=== PATIENT | female | born 2005 | race Caucasian/White ===

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

== ENCOUNTER 2023-06-26 09:29 | Outpatient (AMB) | payer BC, SELFPAY ==
--- NOTE | 2023-06-26 10:05 | A.OFFPC_ITS ---
Vital Signs 06/26/23 10:06 Height 5 ft 7 in Weight 212 lb BMI 33.2 BP 108/74 Blood Pressure Location Rt brachial Position Sitting Pulse 79 Pulse Source Pulse Oximeter Pulse Oximetry (%) 100 Oxygen Delivery Method Room Air Intake Visit Reasons: EST. Care/Transfer Dr. Rivas Intake Note: Pt is here today to [facility] from [facility]: Physical Exam Is last menstrual period known: Yes Last menstrual period: 06/04/23 Allergies No Known Allergies Allergy (Verified 06/26/23 10:14) Medication List - Last Reconciled 06/26/23 by Vaishali Santamaria MD tretinoin 0.05% (Retin-A) 1 appl topical BEDTIME Tobacco use date assessed: 06/26/23 Dental Screening Dental Screen Date: 06/26/23 Did you have a dental visit in the last 12 months?: Yes Did you have a dental problem in the last 6 months where you did not have access to dental care?: Yes Was dental information given to patient?: Patient has dentist HPI EST. Care/Transfer Dr. Rivas HPI Details 18-year-old lady, new to practice, here transferred from [facility], here today to establish care with new provider and for physical exam. She has acne vulgaris currently on tretinoin. 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 She has not yet had her initial pelvic exam or cervical cancer screening. Up-to-date with all her vaccinations. [facility] Medical History (Updated 06/26/23 @ 10:19 by Vaishali Santamaria MD) Acne vulgaris Surgical History (Updated 06/26/23 @ 10:19 by Vaishali Santamaria MD) No pertinent past surgical history Family History Mother No problems noted. Paternal Grandfather Diabetes mellitus Maternal Grandmother Breast cancer Paternal Grandmother No problems noted. 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 1. Little interest or pleasure in doing things: not at all 2. Feeling down, depressed, or hopeless: not at all 3. Trouble falling or staying asleep, or sleeping too much: not at all 4. Feeling tired or having little energy: not at all 5. Poor appetite or overeating: not at all 6. Feeling bad about yourself - or that you are a failure or have let yourself or your family down: not at all 7. Trouble concentrating on things, such as reading the newspaper or watching television: not at all 8. Moving or speaking so slowly that other people could have noticed. Or the opposite - being so fidgety or restless that you have been moving around a lot more than usual: not at all 9. Thoughts that you would be better off or of hurting yourself in some way: not at all Total score: 0 Depression Screening Interpretation: Negative 27308 - PHQ-9 Billing: Yes Source: Developed by Drs. Dain Howell, Dary Abarca, Baldomero Torres and colleagues, with an educational vian from [employer]. Thrive Questionnaire Date Thrive assessed: 10/21/21 I am a: Patient What is your living situation today?: I have a steady place to live Within the past 12 months, did the food you bought not last and you didn't have the money to get more?: Never true Within the past 12 months, did you worry whether your food would run out before you got money to buy more?: Never true Do you have trouble paying for medicines?: No Do you have trouble getting transportation to medical appointments?: No Do you have trouble paying your heating and electricity bill?: No Do you have trouble taking care of your child, family member or friend?: No Do you have trouble with day-to-day activities such as bathing, preparing meals, shopping, managing finances, etc.?: No Are you currently unemployed and looking for a job?: No Are you interested in more education?: No AUDIT C Alcohol Use Questionnaire (AUDIT-C) 1. How often do you have a drink containing alcohol?: Monthly or less 2. How many drinks containing alcohol do you have on a typical day when you are drinking?: 1 or 2 3. How often do you have six or more drinks on one occasion?: Never Total Score: 1 MIKALA-7 AMB Questionnaire MIKALA-7 Date MIKALA - 7 assessed: 06/26/23 Feeling nervous, anxious, or on edge: 0 = Not at all Not being able to stop or control worryin = Not at all Worrying too much about different things: 0 = Not at all Trouble relaxin = Not at all Being so restless that it is hard to sit still: 0 = Not at all Becoming easily annoyed or irritable: 0 = Not at all Feeling afraid as if something awful might happen: 0 = Not at all Total MIKALA-7 score (0-4 normal; 5-9 mild; 10-14 moderate; 15-21 severe): 0 Source: Developed by Drs. Dain Howell, Dary Abarca, Baldomero Torres and colleagues, with an educational ivan from [employer]. MIKALA-7 Assessment Billing MIKALA-7 Assessment Tool: MIKALA-7 Assessment 14062 Review of Systems Const Denies body aches, Denies fatigue, Denies fever(s), Denies headache(s) and Denies weakness Eyes Denies change in vision ENT Denies dizziness, Denies headache(s) and Denies nasal congestion Card Denies chest pain, Denies lightheadedness, Denies palpitations and Denies dyspnea Resp Denies chest congestion, Denies cough, Denies dyspnea and Denies wheezing GI Denies abdominal pain, Denies change in bowel habits and Denies heartburn Denies hematuria, Denies urinary frequency, Denies dysuria and Denies urinary urgency Musc Denies myalgias and Denies arthralgias Skin/Breast Denies breast pain, Denies breast mass and Denies rash Neuro Denies dizziness, Denies headache(s) and Denies weakness Psych Reports no additional complaints Endo Denies fatigue, Denies polydipsia, Denies polyuria and Denies palpitations Obed/Lymph Denies easy bruising Aller/Immun Denies seasonal rhinorrhea and Denies wheezing Physical exam (Primary Care) Vital Signs: Last Vital Signs Pulse 79 06/26/23 10:06 BP 108/74 06/26/23 10:06 Pulse Ox 100 06/26/23 10:06 Oxygen Delivery Method Room Air 06/26/23 10:06 BMI result Body Mass Index 33.2 BMI Assessment/Plan discussion: High BMI High, discussed plan: weight reduction, dietary and physical activity Tobacco/Smoking Status: Tobacco use Status Tobacco use date assessed 06/26/23 06/26/23 10:12 Patient Tobacco Use Status Never used Tobacco 06/26/23 10:12 e-Cigarette/Vaping Use Never Used 06/26/23 10:12 PHQ-9: PHQ-9 Score PHQ-9: Total score 0 06/26/23 10:43 Depression Screening Interpretation: Negative Thrive Assessment: Date of Thrive Assessment Date Thrive assessed 10/21/21 06/26/23 10:12 Const General: comfortable, no acute distress, alert and Physically active Nutritional Appearance: obese Orientation/consciousness: patient oriented x3 Limitations: no limitations HENMT Head: Yes normocephalic and Yes atraumatic Ears: hearing grossly normal bilaterally, external ears normal, TM's normal bilaterally and EAC's normal General nose exam: Normal external nose present Face and sinus: Yes normal facial exam and Yes face symmetric Mouth: Normal oral and palatal mucosa present, tongue normal, oropharynx normal and moist mucous membranes Teeth and gingiva: dentition normal and gingiva normal Throat: Yes posterior oropharynx normal Eyes General: appearance normal, both eyes and all related structures Alignment and Position: alignment normal Periorbital: periorbital findings normal Eyelids: Yes eyelids normal Conjunctivae: conjunctivae normal Sclerae: sclerae normal Pupils: Equal, round and reactive pupils present EOM: EOMs intact bilaterally Neck Neck: Yes full ROM, Yes no lymphadenopathy and Yes supple Thyroid: Thyroid normal Chest Chest palpation & inspection: normal palpation of entire chest wall Breast/axilla inspection: normal inspection of the breasts and normal inspection of the axillae Breast/axilla palpation: normal palpation of the breasts Resp Effort & Inspection: normal respiratory effort and able to speak in complete sentences Auscultation: clear to auscultation bilaterally Cardio Palpation: normal PMI Rate: regular rate Rhythm: regular rhythm Heart sounds: S1 normal heart sound present and S2 normal heart sound present Peripheral pulses: Peripheral pulses 2+ throughout GI Inspection: Yes normal to inspection Palpation (GI): Soft to palpation, nontender, no guarding and no masses Auscultation: normal bowel sounds General: Yes no CVA tenderness and Yes deferred (Referred to Ob) Back/Spine/Pelvis Back: no CVA tenderness and No back tenderness Skin General skin exam: no rashes or lesions noted Neuro General: patient oriented x3 Cranial nerves: Yes Equal, round and reactive pupils present Extrem General: Yes normal to inspection, Yes full ROM, Yes no joint enlargement, Yes no clubbing, cyanosis or edema and Yes normal gait Psych Appearance: grossly normal and well kempt Mental Status: mental status grossly normal Speech and movement: Normal speech and movement present Affect: normal affect Attitude: cooperative Thought process: Normal thought process present Assessment and Plan Assessment & Plan (1) Adult general medical exam: Code(s): Z00.00 - Encounter for general adult medical examination without abnormal fi ndings Plan: Will check appropriate labs. Continue with regular dental visit every 6 months and regular eye exams, at least every 2 years, sees Dr. Griffith. Take adequate calcium in diet and vitamin-D 3 at 2000 IU per cap once a day, in addition to weight-bearing exercises to help maintain good muscle tone and weight control. Instructed to do self-breast exam, and recommended to get yearly mammogram, starting at age 40. Patient up-to-date with all her vaccinations, reminded to get her flu shot this year and the new COVID vaccine booster that is coming out (2) Acne vulgaris: Code(s): L70.0 - Acne vulgaris Plan: Currently using tretinoin as needed and CeraVe facial wash (3) Cervical cancer screening: Code(s): Z12.4 - Encounter for screening for malignant neoplasm of cervix Plan: Referral to [facility] Christopher Dang, patient wants to see Nadia Tatum for her initial cervical cancer screen/pelvic exam Orders: Orders Alanine Aminotransferase 06/26/23 L70.0 - Acne vulgaris, Z. - Encounter for general adult medical examination without abnormal findings Aspartate Amino Transferase 06/26/23 L70.0 - Acne vulgaris, Z00. - Encounter for general adult medical examination without abnormal findings Glucose Fasting 06/26/23 L70.0 - Acne vulgaris, Z00. - Encounter for general adult medical examination without abnormal findings Lipid Panel 06/26/23 L70.0 - Acne vulgaris, Z00.00 - Encounter for general adult medical examination without abnormal findings Vitamin D 25-OH Total 06/26/23 L70.0 - Acne vulgaris, Z00.00 - Encounter for general adult medical examination without abnormal findings Hemoglobin and Hematocrit 06/26/23 L70.0 - Acne vulgaris, Z00.00 - Encounter for general adult medical examination without abnormal findings Referrals [employer]ER Referral Z12.4 - Encounter for screening for malignant neoplasm of cervix Coding Level of Care Code New Pt Prev Care [id number]([id number] Diagnoses Adult general medical exam Z00.00 Acne vulgaris L70.0 Cervical cancer screening Z12.4 Additional Codes MIKALA-7 Assessment Billing - MIKALA-7 Assessment Tool: MIKALA-7 Assessment 46721 ( [id number])
[2023-06-26 10:06] VITALS: BP 108/74; PULSE 79; O2SAT 100; BMI 33.2
== END 2023-06-26 10:41 | disposition home or self-care (01) ==
PROVIDERS: Visit Provider Internal Medicine
DX: Z00.00 Encounter for general adult medical examination without abnormal findings (principal); L70.0 Acne vulgaris; Z12.4 Encounter for screening for malignant neoplasm of cervix
CPT/HCPCS: 99385

== ENCOUNTER 2023-06-26 10:43 | Outpatient (REF) | payer BC, SELFPAY ==
[2023-06-26 13:13] LABS: Hematocrit 41.1 % (37.0-47.0); Hemoglobin 13.5 g/dl (12.0-16.0)
[2023-06-26 13:34] LABS: Alanine Aminotransferase 25 U/L (0-31); Aspartate Amino Transferase 20 U/L (5-31); Cholesterol 194 mg/dL (<200); Glucose Fasting 75 mg/dL (60-99); HDL Cholesterol 70 mg/dL (>40); LDL Cholesterol Calculated 108 mg/dL (<100); Triglycerides 82 mg/dL (<150)
== END 2023-06-26 10:44 | disposition home or self-care (01) ==
LOC: HO.HMGCLDS 10:43
PROVIDERS: PCP Internal Medicine; Visit Provider Internal Medicine
DX: Z00.00 Encounter for general adult medical examination without abnormal findings (principal); L70.0 Acne vulgaris
CPT/HCPCS: 36415; 80061; 82306; 82947; 84450; 84460; 85014; 85018

== ENCOUNTER 2024-08-12 10:49 | Outpatient (AMB) | payer BC, SELFPAY ==
--- NOTE | 2024-08-12 11:22 | MHC.PC.OV ---
Vital Signs 08/12/24 11:32 Height 5 ft 7 in Weight 223 lb BMI 34.9 BP 110/78 Blood Pressure Location Rt brachial Position Sitting Pulse 79 Pulse Source Pulse Oximeter Pulse Oximetry (%) 99 Oxygen Delivery Method Room Air Intake Visit Reasons: EST. Care/Transfer Dr. Rivas Intake Note: Pt is here today to est care/PE Allergies No Known Allergies Allergy (Verified 08/12/24 11:42) Medication List - Last Reconciled 08/12/24 by Vaishali Santamaria MD levonorgestrel-ethinyl estrad 0.1-20 mg-mcg (Vienva) 1 tab PO DAILY tretinoin 0.05% (Retin-A) 1 appl topical BEDTIME Tobacco use date assessed: 08/12/24 Dental Screening Dental Screen Date: 08/12/24 Did you have a dental visit in the last 12 months?: Yes Did you have a dental problem in the last 6 months where you did not have access to dental care?: No Was dental information given to patient?: Patient has dentist HPI HPI Comments History of Present Illness Details 19-year-old lady, here today for physical exam. She is currently being followed at [facility] for her routine Pap and pelvic exam and prescribed control pills for her dysmenorrhea which has been helping. Patient also states that her acne has been controlled ever since she started taking control pills. Would like to be checked for factor 5 mutation, as father has been diagnosed with it [facility] Medical History (Updated 08/12/24 @ 12:02 by Vaishali Santamaria MD) Obesity (BMI 30.0-34.9) Acne vulgaris Surgical History No pertinent past surgical history Family History (Updated 08/13/24 @ 16:36 by Vaishali Santamaria MD) Mother No problems noted. Paternal Grandfather Diabetes mellitus Maternal Grandmother Breast cancer Paternal Grandmother No problems noted. 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 1. Little interest or pleasure in doing things: not at all 2. Feeling down, depressed, or hopeless: not at all 3. Trouble falling or staying asleep, or sleeping too much: not at all 4. Feeling tired or having little energy: not at all 5. Poor appetite or overeating: not at all 6. Feeling bad about yourself - or that you are a failure or have let yourself or your family down: not at all 7. Trouble concentrating on things, such as reading the newspaper or watching television: not at all 8. Moving or speaking so slowly that other people could have noticed. Or the opposite - being so fidgety or restless that you have been moving around a lot more than usual: not at all 9. Thoughts that you would be better off or of hurting yourself in some way: not at all Total score: 0 Depression Screening Interpretation: Negative Depression Screening Done: Yes 97481 - PHQ-9 Billing: Yes Source: Developed by Drs. Dain Howell, Dary Abarca, Baldomero Torres and colleagues, with an educational ivan from [employer]. Thrive Questionnaire Date Thrive assessed: 08/12/24 I am a: Patient What is your living situation today?: I have a steady place to live Within the past 12 months, did the food you bought not last and you didn't have the money to get more?: Sometimes True Within the past 12 months, did you worry whether your food would run out before you got money to buy more?: Never true Do you have trouble paying for medicines?: No Do you have trouble getting transportation to medical appointments?: No Do you have trouble paying your heating and electricity bill?: No Do you have trouble taking care of your child, family member or friend?: No Do you have trouble with day-to-day activities such as bathing, preparing meals, shopping, managing finances, etc.?: No Are you interested in more education?: Yes Please select the resources that you would like help with: None Currently or been in a relationship where the following occur: No concerns reported THRIVE Score: 1 AUDIT C Alcohol Use Questionnaire (AUDIT-C) 1. How often do you have a drink containing alcohol?: 2-3 times a week 2. How many drinks containing alcohol do you have on a typical day when you are drinking?: 1 or 2 3. How often do you have six or more drinks on one occasion?: Never Total Score: 3 MIKALA-7 AMB Questionnaire MIKALA-7 Date MIKALA - 7 assessed: 08/12/24 Feeling nervous, anxious, or on edge: 0 = Not at all Not being able to stop or control worryin = Not at all Worrying too much about different things: 0 = Not at all Trouble relaxin = Not at all Being so restless that it is hard to sit still: 0 = Not at all Becoming easily annoyed or irritable: 0 = Not at all Feeling afraid as if something awful might happen: 0 = Not at all Total MIKALA-7 score (0-4 normal; 5-9 mild; 10-14 moderate; 15-21 severe): 0 Source: Developed by Drs. Dain Howell, Dary Abarca, Baldomero Torres and colleagues, with an educational ivan from [employer]. MIKALA-7 Assessment Billing MIKALA-7 Assessment Tool: MIKALA-7 Assessment 95320 Review of Systems Const Denies body aches, Denies fatigue, Denies fever(s), Denies headache(s), Denies weakness and Reports weight gain Eyes Denies change in vision ENT Denies dizziness, Denies headache(s) and Denies nasal congestion Card Denies chest pain, Denies lightheadedness, Denies palpitations and Denies dyspnea Resp Denies chest congestion, Denies cough, Denies dyspnea and Denies wheezing GI Denies abdominal pain, Denies change in bowel habits and Denies heartburn Denies hematuria, Denies urinary frequency, Denies dysuria and Denies urinary urgency Musc Denies myalgias and Denies arthralgias Skin/Breast Denies breast pain, Denies breast mass and Denies rash Neuro Denies dizziness, Denies headache(s) and Denies weakness Psych Reports no additional complaints Endo Denies fatigue, Denies polydipsia, Denies polyuria and Denies palpitations Obed/Lymph Reports easy bruising Aller/Immun Denies seasonal rhinorrhea and Denies wheezing Physical exam (Primary Care) Vital Signs: Last Vital Signs Pulse 79 08/12/24 11:32 BP 110/78 08/12/24 11:32 Pulse Ox 99 08/12/24 11:32 Oxygen Delivery Method Room Air 08/12/24 11:32 BMI result Body Mass Index 34.9 BMI Assessment/Plan discussion: High BMI High, discussed plan: weight reduction, dietary and physical activity Tobacco/Smoking Status: Tobacco use Status Tobacco use date assessed 08/12/24 08/12/24 11:24 Patient Tobacco Use Status Never used Tobacco 08/12/24 11:24 e-Cigarette/Vaping Use Never Used 08/12/24 11:24 PHQ-9: PHQ-9 Score PHQ-9: Total score 0 08/13/24 16:22 Depression Screening Interpretation: Negative Thrive Assessment: Date of Thrive Assessment Date Thrive assessed 08/12/24 08/12/24 11:35 Currently or been in a relationship where the following occur: No concerns reported Const General: comfortable, no acute distress, alert and Physically active Nutritional Appearance: obese Orientation/consciousness: patient oriented x3 HENMT Head: Yes normocephalic Ears: hearing grossly normal bilaterally, external ears normal, TM's normal bilaterally and EAC's normal General nose exam: Normal external nose present Face and sinus: Yes face symmetric Mouth: Normal oral and palatal mucosa present, oropharynx normal and moist mucous membranes Teeth and gingiva: dentition normal and gingiva normal Throat: Yes posterior oropharynx normal Eyes General: appearance normal, both eyes and all related structures Alignment and Position: alignment normal Periorbital: periorbital findings normal Eyelids: Yes eyelids normal Conjunctivae: conjunctivae normal Sclerae: sclerae normal Pupils: Equal, round and reactive pupils present EOM: EOMs intact bilaterally Neck Neck: Yes full ROM, Yes no lymphadenopathy and Yes supple Thyroid: Thyroid normal Chest Breast/axilla palpation: normal palpation of the breasts Resp Effort & Inspection: normal respiratory effort and able to speak in complete sentences Auscultation: clear to auscultation bilaterally Cardio Palpation: normal PMI Rate: regular rate Rhythm: regular rhythm Heart sounds: S1 normal heart sound present and S2 normal heart sound present Peripheral pulses: Peripheral pulses 2+ throughout GI Inspection: Yes normal to inspection Palpation (GI): Soft to palpation, nontender, no guarding and no masses Auscultation: normal bowel sounds General: Yes no CVA tenderness and Yes deferred (Up-to-date with her cervical cancer screening and pelvic exam, goes to OB) Back/Spine/Pelvis Back: no CVA tenderness and No back tenderness Skin General skin exam: no rashes or lesions noted Neuro General: patient oriented x3 Cranial nerves: Yes Equal, round and reactive pupils present Extrem General: Yes normal to inspection, Yes full ROM, Yes no joint enlargement, Yes no clubbing, cyanosis or edema and Yes normal gait Psych Appearance: grossly normal and well kempt Mental Status: mental status grossly normal Speech and movement: Normal speech and movement present Affect: normal affect Attitude: cooperative Thought process: Normal thought process present Office Procedures Flu Questionnaire Does the patient have a severe egg allergy?: No Does the patient have severe life threatening allergies?: No Does the patient have a fever or illness today?: No Has the patient ever had Guillain-Salinas Syndrome?: No Has the patient ever had any past reaction to a flu shot?: No Immunizations Fluarix Triv [id number] (PF) 45 mcg (15 mcg x 3)/0.5 mL IM syringe Performing Provider: Vaishali Santamaria MD Performing Location: [facility] Administered by: Halle Villa CMA on 08/12/24 11:42 Dose Route Admin Location Dispensed Lot Number Expiration Date [facility] Plating Operator 0.5 mL IM Left Deltoid 0.5 mL [id number] 04/28/25 [id number] [employer] VIS Given Date VIS Provided VIS Publication Date 08/12/24 Single Vaccine 21 Eligibility Eligibility Date Funding Source Not [facility] Eligible 08/12/24 Private Coding Level of Care Code Est Pt Prev Care 18-39y(06475) Diagnoses Annual visit for general adult medical examination with abnormal findings Z00.01 Obesity (BMI 30.0-34.9) E66.811 Acne vulgaris L70.0 Family history of clotting disorder Z83.2 Additional Codes MIKALA-7 Assessment Billing - MIAKLA-7 Assessment Tool: MIKALA-7 Assessment 03047 ([id number]) Assessment & Plan Assessment & Plan (1) Annual visit for general adult medical examination with abnormal findings: Code(s): Z00. - Encounter for general adult medical examination with abnormal findings Plan: Fasting labs ordered, patient goes to [facility] for her routine Pap and pelvic exam and prescribed Vienva for control. Advised to do self-breast exams to check for any mass. Flu vaccine given today, reminded to get her COVID booster. Up-to-date with Tdap (2) Obesity (BMI 30.0-34.9): Code(s): E66.811 - Obesity, class 1 Category: Medical Plan: Discussed need to increase activity and weight reduction. Recommended focusing on improving health instead of dieting. Mediterranean diet is a healthy diet that helps, limit food high in fat, sugar, and calories. Eat slowly, pay attention to portion sizes, plan your meals ahead of time, start regular physical activity, at least 150 minutes of moderate intensity exercise, or 90 minutes per week of vigorous exercise. Keeping a food diary, tracking what you eat and your physical activity can help assess what improvements you can make. There are many health problems associated with being overweight/obese, so it is important to improve your diet and exercise. There are medications and surgical options available, but Lifestyle changes are the 1st step. (3) Acne vulgaris: Code(s): L70.0 - Acne vulgaris Category: Medical Plan: Improving on control pills, uses tretinoin cream intermittently (4) Family history of clotting disorder: Code(s): Z83.2 - Family history of diseases of the blood and blood-forming organs and certain disorders involving the immune mechanism Plan: Ordered factor 5 Leiden mutation screen Orders: Orders Aspartate Amino Transferase 08/12/24 Z00.01 - Encounter for general adult medical examination with abnormal findings, Z13.1 - Encounter for screening for diabetes mellitus, Z13.220 - Encounter for screening for lipoid disorders Basic Metabolic Panel Fasting 08/12/24 Z00. - Encounter for general adult medical examination with abnormal findings, Z13.1 - Encounter for screening for diabetes mellitus, Z13.220 - Encounter for screening for lipoid disorders Vitamin D 25-OH Total 08/12/24 Z00.01 - Encounter for general adult medical examination with abnormal findings, Z13.1 - Encounter for screening for diabetes mellitus, Z13.220 - Encounter for screening for lipoid disorders, Z86.39 - Personal history of other endocrine, nutritional and metabolic disease Influenza [id number] Immunization 08/12/24 Z23 - Encounter for immunization Alanine Aminotransferase 08/12/24 Z00.01 - Encounter for general adult medical examination with abnormal findings, Z13.1 - Encounter for screening for diabetes mellitus, Z13.220 - Encounter for screening for lipoid disorders Lipid Panel 08/12/24 Z00.01 - Encounter for general adult medical examination with abnormal findings, Z13.1 - Encounter for screening for diabetes mellitus, Z13.220 - Encounter for screening for lipoid disorders Complete Blood Count Auto Diff 08/12/24 Z00.01 - Encounter for general adult medical examination with abnormal findings, Z13.1 - Encounter for screening for diabetes mellitus, Z13.220 - Encounter for screening for lipoid disorders
[2024-08-12 11:32] VITALS: BP 110/78; PULSE 79; O2SAT 99; BMI 34.9
== END 2024-08-12 11:56 | disposition home or self-care (01) ==
PROVIDERS: PCP Internal Medicine; Visit Provider Internal Medicine
DX: Z00.00 Encounter for general adult medical examination without abnormal findings (principal); E66.811 Obesity, class 1; Z68.34 Body mass index [BMI] 34.0-34.9, adult; L70.0 Acne vulgaris; Z83.2 Family history of diseases of the blood and blood-forming organs and certain disorders involving the immune mechanism

== ENCOUNTER → 2024-08-12 10:49 | Outpatient (BNVA) | payer BC, SELFPAY | PROVIDERS: PCP Internal Medicine; Visit Provider Internal Medicine | DX: Z00.01 Encounter for general adult medical examination with abnormal findings (principal); E66.811 Obesity, class 1; Z68.34 Body mass index [BMI] 34.0-34.9, adult; L70.0 Acne vulgaris; Z83.2 Family history of diseases of the blood and blood-forming organs and certain disorders involving the immune mechanism; Z23 Encounter for immunization | CPT/HCPCS: 90471; 90656; 96127 ==

== ENCOUNTER 2024-08-14 08:58 | Outpatient (REF) | payer BC, SELFPAY ==
[2024-08-14 09:20] LABS: MANUAL DIFF FLAG NO
[2024-08-14 09:52] LABS: Basophils Percent Auto 0.2 % (0-2); Eosinophils Absolute Auto 0.1 X10*3/uL (0.0-0.4); Eosinophils Percent Auto 2.9 % (0-4); Hematocrit 41.6 % (37.0-47.0); Hemoglobin 13.8 g/dl (12.0-16.0); Lymphocytes Percent Auto 44.6 % (20-40); Mean Corpuscular HGB Conc 33.2 g/dl (31.0-35.0); Mean Corpuscular Hemoglobin 29.2 pg (27.0-33.0); Mean Corpuscular Volume 87.9 fL (80.0-98.0); Mean Platelet Volume 8.1 fL (9.4-12.3); Monocytes Absolute Auto 0.4 X10*3/uL (0.1-1.2); Monocytes Percent Auto 8.6 % (2-11); Neutrophils Percent Auto 43.7 % (45-73); Platelet Count 188 X10*3/uL (160-400); Red Blood Count 4.73 X10*6/uL (4.20-5.50); White Blood Count 4.5 X10*3/uL (4.8-10.8)
[2024-08-14 10:19] LABS: Alanine Aminotransferase 22 U/L (0-31); Anion Gap 12 (12-20); Aspartate Amino Transferase 16 U/L (5-31); Blood Urea Nitrogen 11 mg/dL (9-16); Calcium 9.8 mg/dL (8.4-10.2); Carbon Dioxide 26 mmol/L (22-29); Chloride 107 mmol/L (96-108); Cholesterol 201 mg/dL (<200); Estimated Glomerular Filt Rate > 60; Glucose Fasting 89 mg/dL (60-99); HDL Cholesterol 59 mg/dL (>40); LDL Cholesterol Calculated 111 mg/dL (<100); Sodium 141 mmol/L (135-145); Triglycerides 159 mg/dL (<150)
[2024-08-14 10:38] LABS: Vitamin D 25-OH Total 36.8 ng/mL (>30)
[2024-08-23 23:14] LABS: Factor V Leiden NEGATIVE
== END 2024-08-14 08:59 | disposition home or self-care (01) ==
LOC: HO.LAB 08:58
PROVIDERS: PCP Internal Medicine; Visit Provider Internal Medicine
DX: Z00.01 Encounter for general adult medical examination with abnormal findings (principal); Z13.220 Encounter for screening for lipoid disorders; Z13.1 Encounter for screening for diabetes mellitus; Z86.39 Personal history of other endocrine, nutritional and metabolic disease; Z83.2 Family history of diseases of the blood and blood-forming organs and certain disorders involving the immune mechanism
CPT/HCPCS: 36415; 80048; 80061; 81241; 82306; 84450; 84460; 85025

== ENCOUNTER 2024-12-09 15:18 | Outpatient (AMB) | payer BC, SELFPAY ==
--- NOTE | 2024-12-09 15:35 | A.OFFPC_ITS ---
Vital Signs 3 12/09/24 15:36 Height 5 ft 5.35 in Weight 213 lb BMI 35.1 BP 108/74 Blood Pressure Location Lt brachial Position Sitting Pulse 80 Pulse Source Pulse Oximeter Pulse Oximetry (%) 96 Oxygen Delivery Method Room Air Intake Visit Reasons: EST Care /ALBERTO Santamaria Intake Note: New patient visit Presto Log Operator Required: No Allergies No Known Allergies Allergy (Verified 12/09/24 15:49) Medication List - Last Reconciled 12/09/24 by Janki Mcintosh, [facility]- levonorgestrel-ethinyl estrad 0.1-20 mg-mcg (Vienva) 1 tab PO DAILY Tobacco use date assessed: 12/09/24 Dental Screening Dental Screen Date: 12/09/24 Did you have a dental visit in the last 12 months?: Yes Did you have a dental problem in the last 6 months where you did not have access to dental care?: No Was dental information given to patient?: Patient has dentist HPI HPI Comments 2 History of Present Illness0 Details 19 yo F with hx of acne, obesity, family hx of factor 5 (dad), borderline HLD 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 She reports that the UTI occurred last weekend, with symptoms beginning on November 30. Symptoms included dysuria and hematuria, prompting her to seek care at an urgent care facility due to increased pain, especially during urination. She was treated with antibiotics and a medication to alleviate symptoms. Symptoms improved following the treatment. She shows me the UA and Cx from the walk in. E coli > 100x. Pansensitive The patient reports an intermittent sensation of sensitivity in the vaginal area, initially noticed during the winter break about four to five months ago. She described the symptom as a localized sensitivity near the external vaginal region, particularly before menstruation. The patient has not observed this sensitivity directly nor consulted with an OBGYN since receiving initial advice over the phone. Past inquiries suggested it may be related to an ingrown hair or a possible recurrent minor cyst. Concomitantly, the patient expresses concern about potential iron deficiency as she bruises easily and has experienced fatigue. She has also sought to confirm her cholesterol levels due to a familial history of cardiovascular concerns. Previous blood work from July was evaluated, revealing borderline hypercholesterolemia and no indication of Factor V Leiden mutation or iron deficiency anemia at that time. 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 - Currently lives in [place] for her Data[employer] pursuits but returns home on weekends. 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 - No use of alcohol or tobacco was expli citly discussed beyond the context of the UTI. - The patient is not sexually active & n ever has been Physical Exam General: Awake, alert. No apparent distress Cardiovascular: Regular rate and rhythm Respiratory: Clear to auscultation bilaterally - see below Mood and affect appropriate No ecchymosis Results - Urinalysis: Presence of blood noted. - Urine Culture: Results indicate olivas-rodriguez sceptible organisms. - Previous Blood Work: Borderline elevat ed cholesterol, normal Factor V Leiden screening. 07/2024 Discussion Notes During the consultation, I discussed the patient's recent UTI and confirmed that the treatment received at urgent care had resolved the symptoms satisfactorily. I examined the area of sensitivity reported by the patient, diagnosing a small labial laceration. I explained that the tear was likely causing the discomfort and staining. For management, I recommended avoiding regular toilet paper in favor of flushable wipes and using a perineal wash bottle to reduce irritation and assist in healing. We also addressed the importance of maintaining hydration and proper hygiene to lower UTI risk. I advised on monitoring the labial sensitivity and to follow up if symptoms persist or worsen. I reviewed the prior cholesterol results, confirming the need to recheck lipid panels and evaluate iron status, particularly given the patient's easy bruising and fatigue. We arranged for lab work to be completed at her convenience. Patient Instructions - Use flushable wipes instead of regular toilet paper to minimize irritation. - Utilize a perineal rinse bottle as lakhwinder cribed to promote healing of the labial tear. - Maintain proper hydration and hygiene practices to reduce the risk of future UTIs. - Complete lab work at her convenience t o re-evaluate cholesterol levels and check iron status. - Follow up if current symptoms persist, worsen, or new symptoms arise. Plan For the urinary tract infection, the patient's symptoms have resolved following prescribed antibiotic therapy. Continued maintenance of hydration and hygienic practices is recommended to prevent recurrence. The newly identified labial laceration will be managed by avoiding mechanical irritation through the use of flushable wipes and rinsing with water, as these measures should promote healing and reduce discomfort. There was no indication that current symptoms are related to the previous ingrown hair issue reported. Concerning anemia, laboratory work is necessary to assess iron levels and other potential hematological abnormalities due to the patient's reported easy bruising and prior fatigue. Similarly, her cholesterol will be re-evaluated considering familial risks, despite previous tests indicating borderline levels. No immediate intervention for hyperlipidemia is decided upon pending new results. An additional history note was made regarding a prior acne diagnosis, which appears to be well-controlled with the current control regimen. I emphasized utilizing electronic communication portal messaging) for any further questions or issues that might arise before her next scheduled visit. Further visits should address routine health maintenance and monitor chronic concerns as needed. Patient was informed and verbally consented to the use of an ambient scribe for clinic note documentation during this visit. RTO JULY FOR CPE, SOONER PRN Total time spent caring for the patient today was 45 minutes. This includes time spent before the visit reviewing the chart, time spent during the visit, and time spent after the visit on documentation, reviewing laboratory results, diagnostic imaging, medications, performing a medically necessary evaluation, counseling on diagnoses, care coordination, ordering appropriate tests, ordering appropriate medications, review of tests performed by other providers, reporting test results with the patient, communication with other healthcare providers. [facility] Medical History (Updated 12/09/24 @ 16:28 by Janki Mcintosh, [facility]) Acne vulgaris Obesity (BMI 30.0-34.9) Surgical History No pertinent past surgical history Family History (Updated 12/09/24 @ 15:41 by Shavon Peacock CMA) Mother No problems noted. Paternal Grandfather Diabetes mellitus Maternal Grandmother Breast cancer Paternal Grandmother Breast cancer Father Factor 5 Leiden mutation, heterozygous Social History (Updated 12/09/24 @ 15:42 by Shavon Peacock CMA) Household Members: Family Housing: House Housing Other:: House and apartment for school. 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 1. Little interest or pleasure in doing things: not at all 2. Feeling down, depressed, or hopeless: not at all 3. Trouble falling or staying asleep, or sleeping too much: not at all 4. Feeling tired or having little energy: not at all 5. Poor appetite or overeating: not at all 6. Feeling bad about yourself - or that you are a failure or have let yourself or your family down: not at all 7. Trouble concentrating on things, such as reading the newspaper or watching television: not at all 8. Moving or speaking so slowly that other people could have noticed. Or the opposite - being so fidgety or restless that you have been moving around a lot more than usual: not at all 9. Thoughts that you would be better off or of hurting yourself in some way: not at all Total score: 0 Depression Screening Interpretation: Negative Depression Screening Done: Yes 07219 - PHQ-9 Billing: Yes Source: Developed by Drs. Dain Howell, Dary Abarca, Baldomero Torres and colleagues, with an educational ivan from [employer]. Thrive Questionnaire Date Thrive assessed: 12/04/24 I am a: Patient What is your living situation today?: I have a steady place to live Within the past 12 months, did the food you bought not last and you didn't have the money to get more?: Never true Within the past 12 months, did you worry whether your food would run out before you got money to buy more?: Never true Do you have trouble paying for medicines?: No Do you have trouble getting transportation to medical appointments?: No Do you have trouble paying your heating and electricity bill?: No Do you have trouble taking care of your child, family member or friend?: No Do you have trouble with day-to-day activities such as bathing, preparing meals, shopping, managing finances, etc.?: No Are you currently unemployed and looking for a job?: No Are you interested in more education?: No Please select the resources that you would like help with: None Currently or been in a relationship where the following occur: No concerns reported THRIVE Score: 0 AUDIT C Alcohol Use Questionnaire (AUDIT-C) 1. How often do you have a drink containing alcohol?: 2-4 times a month 2. How many drinks containing alcohol do you have on a typical day when you are drinking?: 3 or 4 3. How often do you have six or more drinks on one occasion?: Less than monthly Total Score: 4 Score Reviewed/Action Taken: Yes MIKALA-7 AMB Questionnaire MIKALA-7 Date MIKALA - 7 assessed: 12/09/24 Feeling nervous, anxious, or on edge: 0 = Not at all Not being able to stop or control worryin = Not at all Worrying too much about different things: 0 = Not at all Trouble relaxin = Not at all Being so restless that it is hard to sit still: 0 = Not at all Becoming easily annoyed or irritable: 0 = Not at all Feeling afraid as if something awful might happen: 0 = Not at all Total MIKALA-7 score (0-4 normal; 5-9 mild; 10-14 moderate; 15-21 severe): 0 Source: Developed by Drs. Dain Howell, Dary Abarca, Baldomero Torres and colleagues, with an educational ivan from [employer]. MIKALA-7 Assessment Billing MIKALA-7 Assessment Tool: MIKALA-7 Assessment 09307 Physical exam (Primary Care) Vital Signs: Last Vital Signs Pulse 80 12/09/24 15:36 BP 108/74 12/09/24 15:36 Pulse Ox 96 12/09/24 15:36 Oxygen Delivery Method Room Air 12/09/24 15:36 BMI result Body Mass Index 35.1 BMI Assessment/Plan discussion: High BMI High, discussed plan: lifestyle Tobacco/Smoking Status: Tobacco use Status Tobacco use date assessed 12/09/24 12/09/24 15:38 Patient Tobacco Use Status Never used Tobacco 12/09/24 15:42 e-Cigarette/Vaping Use Never Used 12/09/24 15:42 PHQ-9: PHQ-9 Score PHQ-9: Total score 0 12/09/24 16:17 Depression Screening Interpretation: Negative Thrive Assessment: Date of Thrive Assessment Date Thrive assessed 12/04/24 12/09/24 15:38 Currently or been in a relationship where the following occur: No concerns reported Female genitals images: 2 1. very superficial skin tear, no drainage, reports mild irritation when the area is touched Coding Level of Care Code Est Pt Level 5 (77663) Complex EM visit Add On G2211 Diagnoses Encounter to establish care Z76.89 Obesity (BMI 35.0-39.9 without comorbidity) E66.9 Family history of factor V deficiency Z83.2 Family history of renal stone Z84.1 Acne vulgaris L70.0 E. coli UTI N39.0; B96.20 Abrasion of labia, initial encounter S30.814A Encounter type: initial encounter Bruising T14.8XXA Additional Codes MIKALA-7 Assessment Billing - MIKALA-7 Assessment Tool: MIKALA-7 Assessment 05833 ([id number]) PHQ-9 - 73561 - PHQ-9 Billing: Yes ([id number]) Assessment & Plan Assessment & Plan (1) Encounter to establish care: Code(s): Z76.89 - Persons encountering health services in other specified circumstances Category: Medical (2) Obesity (BMI 35.0-39.9 without comorbidity): Code(s): E66.9 - Obesity, unspecified Category: Medical (3) Family history of factor V deficiency: Comment: dad negative screen for patient 07/2024 Code(s): Z83.2 - Family history of diseases of the blood and blood-forming organs and certain disorders involving the immune mechanism Category: Medical (4) Family history of renal stone: Comment: dad mom and brother Code(s): Z84.1 - Family history of disorders of kidney and ureter Category: Medical (5) Acne vulgaris: Comment: history of resolved @ current Code(s): L70.0 - Acne vulgaris Category: Medical (6) E. coli UTI: Comment: 11/30/24 Code(s): N39.0 - Urinary tract infection, site not specified; B96.20 - Unspecified Escherichia coli [E. coli] as the cause of diseases classified elsewhere Category: Medical (7) Labial abrasion: Code(s): S30.814A - Abrasion of vagina and vulva, initial encounter Category: Medical Qualifiers: Encounter type: initial encounter Qualified Code(s): S30.814A - Abrasion of vagina and vulva, initial encounter (8) Bruising: Code(s): T14.8XXA - Other injury of unspecified body region, initial encounter Category: Medical Plan . Orders: Orders 2 Complete Blood Count no Diff Today T14.8XXA - Other injury of unspecified body region, initial encounter Ferritin Today T14.8XXA - Other injury of unspecified body region, initial encounter IRON PROFILE Today T14.8XXA - Other injury of unspecified body region, initial encounter Lipid Panel Today T14.8XXA - Other injury of unspecified body region, initial encounter Patient Instructions: Walk-In Care (Urgent Care): We Make it Easy Walk-in for urgent medical issues such as: ? Seasonal Allergies ? Insect Bites ? Cough ? Diarrhea ? Acute Asthma Attacks ? Back, Knee or Joint Pain ? Ear Infection ? Fever without a Rash ? Headaches ? Nausea ? [place], Rash or Skin Irritation ? Sore Throat ? Sports Physicals ? Vomiting Most insurances are accepted. Patients do not need to be part of the [facility] to seek care at the walk-in clinic. Locations [facility] , [place] [address] ? [phone] [facility] Walk-In Care in [place] provides services to ages 18 and over. Open Monday-Monday: 8 a.m. to 5 p.m. and Monday: 9 a.m. to 3 p.m.* *Hours may vary due to staffing availability. To confirm Walk-In Care hours in [place], please call [phone]. [address] [place] [address] ? [phone] [facility] Care in [place] provides services to ages 12 and over. Open Monday-Monday: 8 a.m. to 5 p.m. Hours may vary due to staffing availability. To confirm Walk-In Care hours in [place], please call [phone]. LABORATORY SERVICES: [facility] Lab ? Primary Location [address] [place] [address] Monday through Monday 6:00 AM ? 5:00 PM Monday 7:00 AM ? 11:00 AM* [phone] The [facility] Lab is centrally located near the front entrance of the [facility] for easy outpatient access. Convenient parking is provided for outpatients. *Hours may vary due to staffing availability. To confirm Laboratory hours for any location, please call [phone]. Offsite Location For your convenience, we offer offsite laboratory draw stations at the following locations: [address] [place] [address] ? [facility] [address], [address] [place] [address] Monday through Monday 7:30 AM ? 1:00 PM* [phone] *Hours may vary due to staffing availability. To confirm Laboratory hours for any location, please call [phone]. [place] ? [address] Monday through Monday 6:00 AM ? 3:30 PM* Monday 6:30 AM ? 3 PM* [phone] *Hours may vary due to staffing availability. To confirm Laboratory hours for any location, please call [phone] [place] [address] Monday through Monday 7:30 AM ? 4:00 PM* [phone] *Hours may vary due to staffing availability. To confirm Laboratory hours for any location, please call [phone] [place] [address] Monday through 9:00 AM ? 4:00 PM* *Hours may vary due to staffing availability. To confirm Laboratory hours for any location, please call [phone]. Appointments are not necessary. Walk-ins are welcome. Like all the departments throughout the [facility], our Lab undergoes frequent reviews to ensure the quality and accuracy of test results, and our staff takes special pride in its status as a nationally accredited facility. Patient Portal: ONE PATIENT. ONE RECORD. BETTER CARE. [facility] has a fully integrated, cutting- edge mobile electronic health information system that has revolutionized the way we care for our patients and manage our organization. This system improves communication and coordination enabling us to provide safe, higher-quality care, and an overall positive experience for staff and patients. Our first priority, as always, is to deliver the highest quality care possible. The system is running in the background supporting that priority. This portal is for all [facility] services and practices. If you are experiencing any technical difficulties with enrolling or logging into the Patient Portal please complete the [facility] Patient Portal Technical Support Form. [facility] now offers a new secure on-line interactive tool for patients to review their health information ? ?Patient Portal. This interactive web portal will enable patients and their families to take an active role in their care by providing easy, secure access to their health information via the internet. The Patient Portal provides patients with instant access to their health information, including laboratory results, medications, allergies, demographic information, visit history, and more. In addition to managing their own care, parents and health care proxies with authorized consent will appreciate the ability to access the records of those individuals for whom they provide care. Please note: if you wish to gain access (Proxy) to another patient?s portal, you will be required to come to the Medical Records Department in person at [facility]. Both the patient giving proxy access and the proxy will need to provide photo identification and complete the appropriate authorization. The Patient Portal also allows track their appointments online. The [facility] Patient Portal also saves patients time by allowing them to submit updates to their demographic and contact information prior to their visits. Portal email notifications will also alert patients to any new activity on their portal, such as test results and new appointments. In order to initially enroll in the [facility] Patient Portal, you will need to enter some required information including the following: * your [facility] Medical Record number * your personal home email address * name * date of Please note: In order to enroll in the [facility] Patient Portal, we need to have your email address on file in your electronic medical record. ?The email address needs to be specific for one person (yourself) in order for your Portal enrollment to be successful. ?You can update your email address in person with our Registration staff when you are registering for a hospital visit. ?Otherwise, you will need to come to the Health Information Management (Medical Records) Department at [facility]. ?We are open from Monday ? Monday from 7:30 a.m. ? 4:30 p.m. ?You will be required to present a photo id. Once you have successfully enrolled in the Patient Portal, you will receive a one-time user id and password for the Portal, sent to your email address. ?This will allow you to log into the Patient Portal within 99 hrs and reset your own logon id and password, and define personal security questions. ?Once your permanent login and password have been set, you can log into the [facility] Patient Portal at any time via the blue button above or from the Portal Logon button on any page of the [facility] website. [facility] and [facility] encourage all of our patients to enroll in Patient Portal as it presents a valuable opportunity for patients and their families to actively participate in their care and stay healthy Welcome to [facility]. ?We look forward to working with you.
[2024-12-09 15:36] VITALS: BP 108/74; PULSE 80; O2SAT 96; BMI 35.1
--- OUTSIDE RECORDS SUMMARY | 2024-12-09 16:19 | XMS_ITS | Encounter Summary ---
Author Organization [facility] Address [address] [place] [address] Care Team Providers Care Global Chief Experience Officer Name Role Phone Pcp, No Primary Care Provider Unavailabl e Aurelia Pedro MD Unavailable Reason for Visit * Reason Comments Urinary Tract Infection Blood in urine, pressure and urgency since yesterday Encounter Details Date Type Department Care Team ([facility] st Contact Info) Description 11/30/2024 10:05 AM EST Office Visit [facility] [place] [address] [place] [address] Aurelia Pedro MD [address] [place], [place] [id number] Urinary tract infection with hematuria, site unspecified (Primary Dx); Urinary symptom or sign Social History Tobacco Use Types Packs/Day Years Used Date Smoking Tobacco: Never Passive Smoke Exposure: Never Smokeless Tobacco: Never Tobacco Cessation:Counseling Given: Not Answered Sex and Gender Information Value Date Recorded Sex Assigned at Female 11/30/2024 10:06 AM EST Gender Identity Female 11/30/2024 10:06 AM EST Sexual Orientation Not on file documented as of this encounter Last Filed Vital Signs Vital Sign Reading Time Taken Comments Blood Pressure 112/67 11/30/2024 11:03 AM EST Pulse 91 11/30/2024 11:03 AM EST Temperature 36.8 ??C (98.2 ??F) 11/30/2024 11:[address] Respiratory Rate 16 11/30/2024 11:03 AM EST Oxygen Saturation 99% 11/30/2024 11:03 AM EST Inhaled Oxygen Concentration - - Weight 90.7 kg (200 lb) 11/30/2024 11:03 AM EST Height 172 cm (5' 7.72 ) 11/30/2024 11:03 AM EST Body Mass Index 30.66 11/30/2024 11:03 AM EST documented in this encounter Patient Instructions * Attachments The following attachments cannot be sent through Care Everywhere. * Urinary Tract Infection Female (Gambian) documented in this encounter Progress Notes * Aurelia Pedro MD - 12/03/2024 6:41 PM EST Preliminary result patient is on Macrobid * Aurelia Pedro MD - 11/30/2024 11:07 AM EST Assessment & Plan Kasandra was seen today for urinary tract infection. Diagnoses and all orders for this visit: Urinary tract infection with hematuria, site unspecified - Urine Culture - nitrofurantoin monohydrate (MACROBID) 100 MG capsule; Take 1 capsule (100 mg total) by mouth 2 (two) times a day with meals. Dispense generic equivalent of MACROBID - phenazopyridine (PYRIDIUM) 200 MG tablet; Take 1 tablet (200 mg total) by mouth 3 (three) times aday in the morning, mid-day and early evening. Urinary symptom or sign - POCT Urinalysis Dipstick - POCT , Urine Given history and clinical examination urinalysis done. Positive for high. Discussed with the patient. Will start on Macrobid. Advised lots of fluids. Tylenol as needed for the discomfort. Pyridium prescribed as well. Discussed with the patient we will send out a urine culture. If positive we will call for treatment. If negative continue with the current treatment. If she develops any fever, chills, nausea, vomiting, worsening abdominal or back pain she must be reevaluated. If symptoms are not improved in 3 days she should be reevaluated. Previous Medical History No past medical history on file. Active Medications Outpatient Medications Marked as Taking for the 11/30/24 encounter (Office Visit) with Aurelia Pedro MD Medication Sig Vienva 0.1-20 MG-MCG per tablet Take 1 tablet by mouth. I personally reviewed the patient's prior UC visits and PCP medical records available through [employer]. Recent Results (from the past 2 hour(s)) POCT Urinalysis Dipstick Collection Time: 11/30/24 11:05 AM Result Value Ref Range Source, UA Voided Color, UA Red (A) Yellow & Clear, Yellow Clarity, UA Cloudy (A) Clear Glucose, UA Negative Negative Bilirubin, UA Negative Negative Ketones, UA Small (15) (A) Negative Spec Grav, UA 1.000 (A) 1.003 - 1.030 Blood, UA Large (+++) (A) Negative pH, UA 8.5 (A) 5 - 8 Protein, UA >=300 (+++) (A) Negative Urobilinogen, UA 0.2 0.2 - 1.0 mg/dL Nitrite, UA Positive (A) Negative Leukocyte Esterase, UA Large (+++) (A) Negative Lot Number [id number] [employer] Pass Pass POCT , Urine Collection Time: 11/30/24 11:06 AM Result Value Ref Range Preg Test, Ur Negative Negative Lot Number [id number] [employer] Pass Pass Communication barriers and lifestyle preferences were addressed with the patient. The care plan including medications and self-management goals were reviewed to the best of the patient???s abilities.All questions and concerns were answered. Patient and/or family verbalized understanding of the plan of care. Subjective Subjective Patient ID: Kasandra Sandoval is a 19 y.o. female. Patient is here with complaints of urinary burning, urgency and frequency for the last 24 to 36 hours. No history of prior UTIs. Has noticed some blood in the urine as well. Mild lower abdominal discomfort and lower back discomfort. No nausea or vomiting. No fever or chills. Review of Systems Constitutional: Negative for chills and fever. Gastrointestinal: Positive for abdominal pain. Negative for nausea and vomiting. Genitourinary: Positive for dysuria, frequency and urgency. Negative for difficulty urinating, flank pain and hematuria. Musculoskeletal: Positive for back pain. All other systems reviewed and are negative. Objective Objective Vitals: 11/30/24 1103 BP: 112/67 Pulse: 91 Resp: 16 Temp: 98.2 ??F (36.8 ??C) SpO2: 99% Weight: 90.7 kg (200 lb) Height: 1.72 m (5' 7.72 ) Physical Exam HENT: Head: Normocephalic and atraumatic. Nose: Nose normal. Eyes: Conjunctiva/sclera: Conjunctivae normal. Cardiovascular: Rate and Rhythm: Normal rate and regular rhythm. Pulmonary: Effort: Pulmonary effort is normal. Breath sounds: Normal breath sounds. Abdominal: General: Abdomen is flat. Bowel sounds are normal. Palpations: Abdomen is soft. Tenderness: There is no abdominal tenderness. There is no right CVA tenderness or left CVA tenderness. Neurological: Mental Status: She is alert and oriented to person, place, and time. documented in this encounter Plan of Treatment Not on file documented as of this encounter Procedures Procedure Name Priority Date/Time Associated Diagnosis Comments URINE CULTURE Routine 11/30/2024 11:08 AM EST Urinary tract infection with hematuria, site unspecified POCT , URINE Routine 11/30/2024 11:06 AM EST Urinary symptom or sign POCT URINALYSIS DIPSTICK (IN-HOUSE) Routine 11/30/2024 11:05 AM EST Urinary symptom or sign documented in this encounter Results * (ABNORMAL) Urine Culture (11/30/2024 11:08 AM EST) Culture SEE NOTE(A) [employer] Comment: ??CULTURE, URINE, ROUTINE ?Micro Number: ?[id number] ??Test Status: ? Final ??Specimen Source: ?? Urine ??Specimen Quality: ??Adequate ??Result: ?Greater than 100,000 CFU/mL of Escherichia coli ?E.coli ?INT ?? ADONAY ?? AMOX/CLAVULANATE ? S ? <=2 ?? AMP/SULBACTAM ?S ? <=2 ?? CEFAZOLIN ?NR ?<=4 2 ?? CEFEPIME ? S ? <=0.12 ?? CEFTAZIDIME ?S ? <=1 ?? CEFTRIAXONE ?S ? <=0.25 ?? CIPROFLOXACIN ?S ? <=0.06 ?? GENTAMICIN ? S ? <=1 ?? IMIPENEM ? S ? <=0.25 ?? LEVOFLOXACIN ? S ? <=0.12 ?? MEROPENEM ?S ? <=0.25 ?? NITROFURANTOIN ? S ? <=16 ?? PIP/TAZOBACTAM ? S ? <=4 ?? TRIMETHOPRIM/SULFA ? S ? <=20 S = Susceptible ??I = Intermediate ??R = Resistant ??NS = Not susceptible SDD = Susceptible Dose Dependent ??* = Not Tested ??NR = Not Reported NN = See Therapy Comments THERAPY COMMENTS ?Note 1: ?For infections other than uncomplicated UTI ?caused by E. coli, K. pneumoniae or P. mirabilis: ?Cefazolin is resistant if ADONAY > or = 8 mcg/mL. ?(Distinguishing susceptible versus intermediate ?for isolates with ADONAY < or = 4 mcg/mL requires ?additional testing.) ?Note 2: ?For uncomplicated UTI caused by E. coli, ?K. pneumoniae or P. mirabilis: Cefazolin is ?susceptible if ADONAY <32 mcg/mL and predicts ?susceptible to the oral agents cefaclor, cefdinir, ?cefpodoxime, cefprozil, cefuroxime, cephalexin ?and loracarbef. Microbiology Urine specimen / Unknown 11/30/2024 11:08 AM EST 12/01/2024 1:15 AM EST Aurelia Pedro MD MICROBIOLOGY - GENER AL ORDERABLES [employer] [address] [place] [phone] * POCT , Urine (11/30/2024 11:06 AM EST) Preg Test, Ur Negative Negative Lot Number [id number] [employer] Pass Pass Urine 11/30/2024 11:0 6 AM EST Aurelia Pedro MD POINT OF CARE TEST O RDERABLES * (ABNORMAL) POCT Urinalysis Dipstick (11/30/2024 11:05 AM EST) Source, UA Voided Color, UA Red(A) Yellow & Clear, Yellow Clarity, UA Cloudy(A) Clear Glucose, UA Negative Negative Bilirubin, UA Negative Negative Ketones, UA Small (15)(A) Negative Spec Grav, UA 1.000(A) 1.003 - 1.030 Blood, UA Large (+++)(A) Negative pH, UA 8.5(A) 5 - 8 Protein, UA >=300 (+++)(A) Negative Urobilinogen, UA 0.2 0.2 - 1.0 mg/dL Nitrite, UA Positive(A) Negative Leukocyte Esterase, UA Large (+++)(A) Negative Lot Number [id number] [employer] Pass Pass Urine 11/30/2024 11:0 5 AM EST Aurelia Pedro MD POINT OF CARE TEST O RDERABLES documented in this encounter Visit Diagnoses Diagnosis Urinary tract infection with hematuria, site unspecified- Primary Urinary symptom or sign documented in this encounter Care Teams Global Chief Experience Officer Relationship Specialty Start Date End Date Pcp, No [address] [place] [address] PCP - General 10/03/21 Aurelia Pedro MD [address] [place] [address] Family Medicine 11/30/24 documented as of this encounter
--- OUTSIDE RECORDS SUMMARY | 2024-12-09 16:19 | XMS_ITS | Encounter Summary ---
Author Organization [facility] Address [address] [place] [address] Care Team Providers Care Career Development Specialist Name Role Phone Pcp, No Primary Care Provider Aurelia Sears MD Unavailable Encounter Details Date Type Department Care Team (Latest Contact Info) Description 11/30/2024 Travel Social History Tobacco Use Types Packs/Day Years Used Date Smoking Tobacco: Never Passive Smoke Exposure: Never Smokeless Tobacco: Never Sex and Gender Information Value Date Recorded Sex Assigned at Female 11/30/2024 10:06 AM EST Gender Identity Female 11/30/2024 10:06 AM EST Sexual Orientation Not on file documented as of this encounter Plan of Treatment Not on file documented as of this encounter Visit Diagnoses Not on filedocumented in this encounter Care Teams Career Development Specialist Relationship Specialty Start Date End Date Pcp, No [address] [place] [address] PCP - General 10/03/21 Aurelia Pedro MD [address] [place] [address] Family Medicine 11/30/24 documented as of this encounter
--- OUTSIDE RECORDS SUMMARY | 2024-12-09 16:19 | XMS_ITS ---
Author Name [facility] Organization Unknown Results Test Name/Text Value Interpretation Date Range Source Bacteria Ur Cult SEE NOTE Abnormal [id number] [facility]
--- OUTSIDE RECORDS SUMMARY | 2024-12-09 16:19 | XMS_ITS | Clinical Summary ---
Author Organization [facility] Address [address] [place] [address] Care Team Providers Care Chronic Manager Name Role Phone Pcp, No Primary Care Provider John e Aurelia Pedro MD Unavailable Allergies No known active allergies Medications Medication Sig Dispensed Refills Start Date End Date Status Vienva 0.1-20 MG-MCG per tablet Take 1 tablet by mouth. 09/13/2024 Active phenazopyridine (PYRIDIUM) 200 MG tabletIndications: Urinary tract infection with hematuria, site unspecified Take 1 tablet (200 mg total) by mouth 3 (three) times a day in the morning, mid-day and early evening. 6 tablet 11/30/2024 Active nitrofurantoin monohydrate (MACROBID) 100 MG capsuleIndications :Urinary tract infection with hematuria, site unspecified Take 1 capsule (100 mg total) by mouth 2 (two) times a day with meals. Dispense generic equivalent of MACROBID 14 capsule 11/30/2024 12/07/2024 Active Problems Problem Noted Date Diagnosed Date Encounter for screening for COVID-19 10/03/2021 Assessment & Plan (10/03/2021 3:54 PM EST): Patient was screened for coronavirus. If Positive they are to quarantine for 10 days Encounters Date Type Department Care Team Description 11/30/2024 10:05 AM EST Office Visit [facility] [place] [address] [place] [phone] Aurelia Pedro MD Urinary tract infection with hematuria, site unspecified (Primary Dx); Urinary symptom or sign 11/30/2024 Travel from Last 3 Months Social History Tobacco Use Types Packs/Day Years Used Date Smoking Tobacco: Never Passive Smoke Exposure: Never Smokeless Tobacco: Never Tobacco Cessation:Counseling Given: Not Answered Sex and Gender Information Value Date Recorded Sex Assigned at Female 11/30/2024 10:06 AM EST Gender Identity Female 11/30/2024 10:06 AM EST Sexual Orientation Not on file Last Filed Vital Signs Vital Sign Reading [...] Mass Index 30.66 11/30/2024 11:03 AM EST Plan of Treatment Health Maintenance Due Date Last Done Comments Hepatitis C Virus Screening 2003 HIV Screening 01/28/2016 HPV Vaccines (1 - 3-dose series) 2018 DTaP/Tdap/Td Vaccines (1 - Tdap) 2022 Hepatitis B Vaccines (1 of 3 - 19+ 3-dose series) 2022 Pap Smear (Ages 21-65) 01/28/2024 Influenza Vaccine 05/30/2024 COVID-19 Vaccine (1 - 2023-2 5 season) 2024 Pneumococcal Vaccine: Pediat obdulia (0-5 Years) and At-Risk Patients (6 to 49 Years) Aged Out No longer eligible b ased on patient's age to complete this topic Procedures Procedure Name Priority Date/Time Associated Diagnosis Comments URINE CULTURE Routine 11/30/2024 11:08 AM EST Urinary tract infection with hematuria, site unspecified POCT , URINE Routine 11/30/2024 11:06 AM EST Urinary symptom or sign POCT URINALYSIS DIPSTICK (IN-HOUSE) Routine 11/30/2024 11:05 AM EST Urinary symptom or sign from Last 3 Months Results * (ABNORMAL) Urine Culture (11/30/2024 11:08 AM EST) Culture SEE NOTE(A) [employer] Comment: ??CULTURE, URINE, ROUTINE ?Micro Number: ?[id number] ??Test Status: ? Final ??Specimen Source: ?? [...] Pedro MD MICROBIOLOGY - GENER AL ORDERABLES [employer] [address] [place] [phone] * POCT , Urine (11/30/2024 11:06 AM EST) Preg Test, Ur Negative Negative Lot Number [id number] [employer] Pass Pass Urine 11/30/2024 11:0 6 AM [...] Esterase, UA Large (+++)(A) Negative Lot Number [id number] [employer] Pass Pass Urine 11/30/2024 11:0 5 AM EST Aurelia Pedro MD POINT OF CARE TEST O RDERABLES from Last 3 Months Care Teams Chronic Manager Relationship Specialty Start Date End Date Pcp, No [address] [place] [address] PCP - General 10/03/21 Aurelia Pedro MD [address] [place] [facility] [place] [address] Family Medicine 11/30/24
== END 2024-12-09 16:11 | disposition home or self-care (01) ==
PROVIDERS: PCP Nurse Practitioner Family; Visit Provider Nurse Practitioner Family
DX: N39.0 Urinary tract infection, site not specified (principal); E66.9 Obesity, unspecified; Z68.35 Body mass index [BMI] 35.0-35.9, adult; Z76.89 Persons encountering health services in other specified circumstances; Z83.2 Family history of diseases of the blood and blood-forming organs and certain disorders involving the immune mechanism; Z84.1 Family history of disorders of kidney and ureter; L70.0 Acne vulgaris; B96.20 Unspecified Escherichia coli [E. coli] as the cause of diseases classified elsewhere; S30.814A Abrasion of vagina and vulva, initial encounter; T14.8XXA Other injury of unspecified body region, initial encounter

== ENCOUNTER → 2024-12-09 15:18 | Outpatient (BNVA) | payer BC, SELFPAY | PROVIDERS: PCP Nurse Practitioner Family; Visit Provider Nurse Practitioner Family | DX: Z76.89 Persons encountering health services in other specified circumstances (principal); E66.9 Obesity, unspecified; N39.0 Urinary tract infection, site not specified; S30.814A Abrasion of vagina and vulva, initial encounter; T14.8XXA Other injury of unspecified body region, initial encounter; Z83.2 Family history of diseases of the blood and blood-forming organs and certain disorders involving the immune mechanism; Z84.1 Family history of disorders of kidney and ureter | CPT/HCPCS: 96127 ==

== ENCOUNTER 2024-12-14 11:02 | Outpatient (REF) | payer BC, SELFPAY ==
[2024-12-14 13:37] LABS: Hematocrit 41.3 % (37.0-47.0); Mean Corpuscular HGB Conc 33.9 g/dl (31.0-35.0); Mean Corpuscular Hemoglobin 29.9 pg (27.0-33.0); Mean Corpuscular Volume 88.1 fL (80.0-98.0); Mean Platelet Volume 8.2 fL (9.4-12.3); Platelet Count 202 X10*3/uL (160-400); Red Blood Count 4.69 X10*6/uL (4.20-5.50); Red Cell Distribution Width 13.7 % (11.0-16.0); White Blood Count 3.6 X10*3/uL (4.8-10.8)
[2024-12-14 14:01] LABS: Cholesterol 211 mg/dL (<200); HDL Cholesterol 66 mg/dL (>40); Iron 97 mcg/dL (30-160); LDL Cholesterol Calculated 130 mg/dL (<100); Percent Iron Saturation 31 % (15-50); Total Iron Binding Capacity 310 mcg/dL (228-428); Triglycerides 75 mg/dL (<150); Unsaturated Iron Binding 213 ug/dL
[2024-12-14 14:09] LABS: Ferritin 15 ng/mL (10-122)
== END 2024-12-14 11:03 | disposition home or self-care (01) ==
LOC: HO.HMGCLDS 11:02
PROVIDERS: PCP Nurse Practitioner Family; Visit Provider Nurse Practitioner Family
DX: Z13.6 Encounter for screening for cardiovascular disorders (principal); T14.8XXA Other injury of unspecified body region, initial encounter
CPT/HCPCS: 36415; 80061; 82728; 83540; 85027

== ENCOUNTER → 2025-02-14 13:33 | Outpatient (BNV) | payer BC, SELFPAY | PROVIDERS: PCP Nurse Practitioner Family; Referring Provider Nurse Practitioner Family; Visit Provider Internal Medicine | DX: D72.819 Decreased white blood cell count, unspecified (principal) | CPT/HCPCS: 99204 ==